=== PATIENT | male | born 2005 | race Caucasian/White ===

== ENCOUNTER 2025-07-22 11:42 | Emergency (ER) | payer OTHER, SELFPAY ==
--- NOTE | 2025-07-22 11:45 | DI.RAD_ITS ---
Exam(s) XR WRIST LT COMPLETE EXAM: XR WRIST LT COMPLETE CLINICAL HISTORY: ulnar pain, no injury, ? tendonitis. TECHNIQUE: 2D digital imaging was performed. Three views. COMPARISON: No exams were available for comparison FINDINGS: BONES: No acute fracture is present. No bony destructive lesion is seen. JOINTS: The carpal bones are normally aligned. SOFT TISSUE: Normal. IMPRESSION: Unremarkable radiographs of the left wrist. DATA REPOSITORY: RADIATION DOSE DELIVERED:
[2025-07-22 11:47] VITALS: BP 138/74; PULSE 76; RESP 16; TEMP 36.6; O2SAT 98
--- NOTE | 2025-07-22 11:50 | W.ED.GENAD ---
Discharge Plan Disposition Patient Disposition: Home Condition: Stable Discharge Details Clinical Impression: Left wrist tendonitis ED Provider: Cori Castillo Home Meds and New Rx's Prescriptions: No Action No Known Home Meds Discharge Instructions Instructions: Tendinopathy (DC) Additional Instructions: You were seen in the emergency department today for evaluation of left wrist pain, likely due to an overuse injury or tendinitis. In our department had a full physical examination performed and had an x-ray done of your wrist that did not show any abnormalities which might explain your symptoms. You most likely have a tendinitis, which will require rest from heavy lifting to allow it to heal. Additionally, I provided you with a brace which you can use to support your wrist, you do not have to wear it all the time and can take it off to sleep shower and rest, but should use it if you are going to be actively using your wrist. Please use therapeutic dosing of Tylenol (acetaminophen) & Advil (ibuprofen) in an alternating fashion as follows: Take 1000mg of Tylenol every 6 hours without missing doses- that is 4 times per day. [place] in between the Tylenol doses, take 600mg of Advil also on a 6 hour schedule, that is also 4 times per day. With this strategy, you will be taking something for fever/pain as often as every 3 hours. The daily maximum dosing of Tylenol is 4000mg, and the daily maximum dosing of Advil is 2400mg. Please note that some common cold medications & prescription pain medications may contain acetaminophen and you need to read OTC drug labels and factor that in to maximum daily doses. Please follow-up with your primary care provider in the next few days to discuss this visit and any symptoms that change, worsen, or persist. Thank you for allowing us to be part of your care. Stand Alone Forms: Portal Information HPI General Mode of arrival: ambulatory. Date/Time Provider Initiated Documentation: 07/22/25 11:49. Limitations to Documentation: no limitations. Information obtained by: patient and old records reviewed. HPI Narrative: This is a 20-year-old male patient presenting for evaluation of a left wrist injury. The patient is right-hand dominant, states that he does a lot of heavy lifting at work and has noticed gradually over the last several weeks some worsening left wrist pain in the ulnar distribution especially with flexion and extension under a heavy load. He reports no discrete injuries or trauma, has no numbness, weakness, or tingling distal to this injury, has not noted any swelling. He tried wearing a brace or wrap, but noted that his wrist just feels better when he rests it. This is an isolated complaint and the patient is otherwise in his normal state of health. Related Data Home Medications ?Medication ?Instructions ?Recorded ?Confirmed Unknown [No Known Home Meds] 07/22/25 07/22/25 Allergies Allergy/AdvReac Type Severity Reaction Status Date / Time No Known Allergies Allergy Unverified 07/22/25 11:49 General Stated Complaint: Orthopedic MICAH: 4 Exam Narrative Exam Narrative: Gen: Awake and alert, in no apparent distress HEENT: Non-icteric sclera Neck: Supple Lungs: No apparent respiratory distress, normal respiratory effort. CV: Appears well perfused Abdomen: Non-distended MSK: Moves 4 extremities without apparent limitation in ROM. The left wrist ranges fully, patient reports that he has minimal discomfort with active range of motion if he is not carrying a weighted load. Neurovascular exam distal to the affected left wrist is intact with brisk capillary refill, full strength and sensation. No swelling or overlying skin changes, no anatomical snuffbox tenderness, left forearm and elbow are otherwise unaffected. Skin: Visualized skin without rashes, cyanosis. Neuro: Normal Gait, no obvious focal deficits or facial asymmetry. Speaks in full, clear sentences. Psych: Appropriate for situation. Course Vital Signs Vital signs: Vital Signs Temperature 36.6 C 07/22/25 11:47 Pulse 76 07/22/25 11:47 Respiratory Rate 16 07/22/25 11:47 Blood Pressure 138/74 07/22/25 11:47 Pulse Oximetry 98 07/22/25 11:47 Temperature 36.6 C 07/22/25 11:47 Pulse 76 07/22/25 11:47 Respiratory Rate 16 07/22/25 11:47 Blood Pressure 138/74 07/22/25 11:47 Pulse Oximetry 98 07/22/25 11:47 Pain Level 4 07/22/25 11:47 Medical Decision Making This is a 20-year-old male patient presenting for evaluation of left wrist injury. Given the durations of symptoms, the lack of trauma, and the reassuring examination my differential is most suspicious for a tendinitis, sprain/strain, though I did consider fracture, dislocation. No evidence of neurovascular derangement, no overlying skin changes to suggest infection or gout. We will obtain an x-ray image of the affected left wrist. -X-ray reviewed by myself, showing no acute osseous abnormalities, exam most concerning for tendinitis, sprain/strain. A universal wrist splint was provided and I did senior genetic counselor the patient on conservative pain management and limitation of heavy lifting. A referral to a primary care provider will be provided. At this time, the patient has had a full medical evaluation and is safe for discharge to home. They are hemodynamically stable, ambulatory, and tolerating PO. They are understanding of the follow-up plan and return precautions. They left our facility without incident. Cori Castillo MD [facility] All Active Problems (Updated 07/22/25 @ 12:20 by Cori Castillo MD) Left wrist tendonitis (Acute) Social History Smoking/Tobacco Use Status: Never Smoking risk assessment performed?: Yes Alcohol Intake: never Substance use type: does not use
--- NOTE | 2025-07-23 09:52 | NUR.NOTE ---
Access chart to print the demographic sheet for [facility] billing requisition. Nursing Note:
== END 2025-07-22 12:39 | disposition home or self-care (01) ==
LOC: ER 15:11
PROVIDERS: Emergency Provider Emergency Medicine
DX: M77.8 Other enthesopathies, not elsewhere classified (principal)
CPT/HCPCS: 99283 ×2; 73110